=== PATIENT | female | born 1990 | race Two or more races ===

== ENCOUNTER 2018-12-08 11:33 | Inpatient (IN) | payer OTHER, MEDICAID ==
[2018-12-08] MEDS ORDERED: RINGERS SOLUTION,LACTATED 300 ML IV ONE (11:49)
[2018-12-08] MEDS ORDERED: RINGERS SOLUTION,LACTATED 1,000 ML IV PRN (11:49)
[2018-12-08] MEDS ORDERED: OXYTOCIN/NORMAL SALINE 20 UNIT/1,000 ML RTUINJ IV PRN ×2 (11:49→20:01)
[2018-12-08] MEDS ORDERED: PENICILLIN G POTASSIUM 5,000,000 UNIT in DEXTROSE 5%-WATER 100 ML IV ONE (11:50)
[2018-12-08] MEDS ORDERED: MISOPROSTOL 0.2 MG TABLET ONE (12:14)
[2018-12-08] MEDS ORDERED: PENICILLIN G-K 5 MILLION UNIT VIAL ONE ×3 (12:14→21:24)
[2018-12-08] MEDS ORDERED: LIDOCAINE 1% INJ-PF (10 MG/ML) 30 ML SDV ONE (12:14)
[2018-12-08] MEDS ORDERED: OXYTOCIN/NORMAL SALINE 20 UNIT/1,000 ML RTUINJ ONE (12:14)
[2018-12-08 13:01] LABS: ABSOLUTE LYMPHOCYTES (AUTO) 0.8 10^3/uL (0.5-4.7); ABSOLUTE MONOCYTES (AUTO) 0.3 10^3/uL (0.1-1.4); ABSOLUTE NEUT (AUTO) 6.1 10^3/uL (1.7-8.2); BASOPHILS % (AUTO) 0.1 % (0-2); EOSINOPHILS % (AUTO) 0.6 % (0-6); HEMATOCRIT 35.1 % (36.0-47.0); HEMOGLOBIN 12.3 g/dL (12.0-15.5); LYMPHOCYTES % (AUTO) 10.9 % (13-45); MEAN CORPUSCULAR HEMOGLOBIN 33.1 pg (27.0-33.4); MEAN CORPUSCULAR VOLUME 95 fl (80-97); MONOCYTES % (AUTO) 4.2 % (3-13); PLATELET COUNT 205 10^3/uL (150-450); RED CELL DISTRIBUTION WIDTH 13.6 % (11.5-14.0); SEGMENTED NEUTROPHILS % (AUTO) 84.2 % (42-78); TOTAL CELLS COUNTED % (AUTO) 100 %; WHITE BLOOD COUNT 7.2 10^3/uL (4.0-10.5)
--- NOTE | 2018-12-08 13:58 | Admission Physical ---
Datetime Report Generated by CPN: 12/08/2018 13:57 CURRENT ADMISSION Chief Complaint: Sent from OB Office for Evaluation and Treatment - Please Specify Chief Complaint Other: new onset oligohydramnios at term Indication for Induction: Oligohydramnios Admit Impression : Term, Intrauterine Admit Plan: Admit to Unit; Initiate Labor Induction Protocol ALLERGIES Medication Allergies: No Medication Allergies: No Known Allergies (12/08/2018) Latex: No Latex Allergies Food Allergies: none Environmental Allergies: none OBSTETRICAL HISTORY EDC: 12/06/2018 00:00 : 3 Para: 1 Term: 1 : 1 SAB: 0 IAB: 0 Ectopic: 0 Livin Cesareans: 0 VBACs: 0 Multiple Births: 0 Gestational Diabetes: No Rh Sensitization: No Incompetent Cervix: No JULIO: No Infertility: No ART Treatment: No Uterine Anomaly: No IUGR: No Hx Previous C/S: No Macrosomia: No Hx Loss/Stillborn: Yes PIH: No Hx : No Placenta Previa/Abruption: No Depression/PP Depression: Yes PTL/PROM: No Post Hemorrhage: No Current Procedures: Ultrasound; NST Obstetrical History Comments: G1: 2014 20 week demise vaginal G2: 2015 39 weeks - baby has sickle cell trait G3: current SEE RECORDS Alcohol: No Marijuana : No Cocaine: No Other Illicit Drugs: No Cigarettes: Former Smoker. [id number] MEDICAL HISTORY Diabetes: No Blood Transfusion: No Pulmonary Disease (Asthma, TB): No Breast Disease: No Hypertension: No Finish Mender Surgery: No Heart Disease: No Hosp/Surgery: Yes Autoimmune Disorder: No Anesthetic Complications: No Kidney Disease: No Abnormal Pap Smear: Yes Neuro/Epilepsy: No Psychiatric Disorders: No Other Medical Diseases: No Hepatitis/Liver Disease: No Significant Family History: No Varicosities/Phlebitis: No Trauma/Violence : No Thyroid Dysfunction: No Medical History Comments: ASCUS/+HPV, needs colpo INFECTIOUS HISTORY Gonorrhea: No Genital Herpes: No Chlamydia: No Tuberculosis: No Syphilis: No Hepatitis: No HIV/AIDS Exposure: No Rash or Viral Illness: No HPV: Yes 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 PHYSICAL EXAM General: Normal HEENT: Normal Neurologic: Normal Thyroid: Deferred Heart: Normal Lungs: Normal Breast: Deferred Back: Normal Abdomen: Normal Genitourinary Exam: Normal Extremities: Normal DTRs: Deferred Pelvic Type: Adequate Physical Exam Comments: proven pelvis to 6#8 Vital Signs: Reviewed; Within Normal Limits VAGINAL EXAM Dilatation: 4cm in office Contraction Comments: rare MEMBRANES Membranes: Intact FETUS A EGA: 40.2 Monitoring: External US FHR- Baseline: 140 Variability: Moderate 6-25bpm Accelerations: 15X15 Decelerations: None Estimated Weight (gm): 3300 Presentation: Vertex Admit Comment: at 40+2 with previous IUFD at 20w, sent from office for newly found oligohydramnios today, GBS pos. P:penicillin for GBS propylaxis, pitocin IOL, anticipate PLANS FOR LABOR AND DELIVERY Labor and Delivery: None Pain Management: Epidural Feeding Preference: Breast Benefit of Breast Feed Discussed: Yes Circumcision: Yes INFORMED CONSENT Assignment: Barbara Serrano MD Signature: with User ID: [email or web address] : with User ID: [email or web address]
[2018-12-08 14:26] LABS: URINE AMPHETAMINES SCREEN NEGATIVE; URINE BARBITURATES SCREEN NEGATIVE; URINE BENZODIAZEPINES SCREEN NEGATIVE; URINE COCAINE SCREEN NEGATIVE; URINE MARIJUANA (THC) SCREEN NEGATIVE; URINE METHADONE SCREEN NEGATIVE; URINE PHENCYCLIDINE SCREEN NEGATIVE
[2018-12-08] MEDS ORDERED: PSEUDOEPHEDRINE HCL 30 MG TABLET PO ONE (15:45)
[2018-12-08] MEDS: PENICILLIN G POTASSIUM 2,500,000 UNIT in DEXTROSE 5%-WATER 50 ML IV SCH ×2 (16:57→21:35)
[2018-12-09] MEDS ORDERED: EPHEDRINE SULFATE INJ 50 MG/1 ML AMPULE ONE (00:35)
[2018-12-09] MEDS ORDERED: PHENYLEPHRINE HCL INJ/PF 10 MG/1 ML SDV ONE (00:35)
[2018-12-09] MEDS ORDERED: FENTANYL/BUPIVACAINE/NS/PF 300 MCG/150 ML RTUINJ EPI ONE (00:35)
[2018-12-09] MEDS ORDERED: BUPIVACAINE HCL 0.25 % INJ/PF (2.5 MG/1 ML) 30 ML VIAL ONE (00:35)
[2018-12-09] MEDS ORDERED: FENTANYL CITRATE INJ/PF 100 MCG/2 ML AMPUL ONE (00:35)
[2018-12-09] MEDS ORDERED: DIPHENHYDRAMINE HCL 50 MG/ML VIAL IV PRN (00:56)
[2018-12-09] MEDS ORDERED: FENTANYL/BUPIVACAINE/NS/PF 100 ML EPI PRN (00:56)
[2018-12-09] MEDS ORDERED: EPHEDRINE SULFATE INJ 50 MG/1 ML AMPULE IV ONE (00:56)
[2018-12-09] MEDS ORDERED: BENZOIN/ALOE VERA/STORAX/TOLU TINCTURE 60 ML TP PRN (00:56)
[2018-12-09] MEDS ORDERED: BUPIVACAINE HCL 0.25 % INJ/PF (2.5 MG/1 ML) 30 ML VIAL INFIL ONE (00:56)
[2018-12-09] MEDS ORDERED: EPHEDRINE SULFATE INJ 50 MG/1 ML AMPULE IV PRN (00:56)
[2018-12-09] MEDS ORDERED: LIDOCAINE 1.5%/EPINEPHRINE INJ-PF 30 ML SDV ONE (00:59)
[2018-12-09] MEDS ORDERED: FENTANYL/BUPIVACAINE/NS/PF 200 MCG/100 ML RTUINJ EPI PRN (01:01)
[2018-12-09] MEDS ORDERED: DIBUCAINE 1% OINTMENT 28 GM TP PRN (02:53)
[2018-12-09] MEDS ORDERED: ACETAMINOPHEN WITH CODEINE #3 TABLET PO PRN (02:53)
[2018-12-09] MEDS ORDERED: BENZOCAINE/MENTHOL AEROSOL SPRAY 56 ML TOP PRN (02:53)
[2018-12-09] MEDS ORDERED: DIPH/PERTUSS(ACELL)/TETANUS VAC/PF 0.5 ML SYR (>=10YO) IM PRN (02:53)
[2018-12-09] MEDS ORDERED: OXYTOCIN/NORMAL SALINE 20 UNIT/1,000 ML RTUINJ IV PRN (02:53)
[2018-12-09] MEDS ORDERED: ZOLPIDEM TARTRATE 5 MG TABLET PO PRN (02:53)
[2018-12-09] MEDS: IBUPROFEN 800 MG TABLET PO SCH ×3 (06:05→21:06)
[2018-12-09] MEDS: DOCUSATE SODIUM 100 MG CAPSULE PO SCH ×2 (09:22→18:30)
[2018-12-09] MEDS: PRENATAL VITAMIN W DHA CAPSULE PO SCH (09:22)
[2018-12-09] MEDS: SENNOSIDES/DOCUSATE 8.6-50 MG 1 EACH TABLET PO SCH (09:22)
[2018-12-09] MEDS: FERROUS SULFATE 325 MG TABLET PO SCH ×2 (09:23→18:30)
[2018-12-09] MEDS: ACETAMINOPHEN WITH CODEINE #3 TABLET PO PRN ×2 (09:25→18:30)
--- NOTE | 2018-12-09 09:48 | PDOC PROGRESS REPORT ---
Subjective-OB Progress Note for:: 12/09/18 Subjective: PPD 0. Pt doing well, reports light bleeding, reg diet and no problems voiding. Physical Exam (OB) Vital Signs: Temp Pulse Resp BP Pulse Ox 98.4 F 79 17 109/51 L 100 12/09/18 07:40 12/09/18 07:40 12/09/18 07:40 12/09/18 07:40 12/09/18 07:40 Intake & Output 12/08/18 12/09/18 12/10/18 06:59 06:59 06:59 Intake Total 50 Balance 50 Weight 109.2 kg - Lochia Lochia Amount: Scant < 10 ml Lochia Color: Rubra/Red - Abdomen Description: Soft, Round Fundal Height: u/u - u/2 Objective-Diagnostic Laboratory: 12/08/18 12:26 12/08/18 12/08/18 12:26 12:26 WBC 7.2 RBC 3.70 L Hgb 12.3 Hct 35.1 L MCV 95 MCH 33.1 MCHC 35.0 RDW 13.6 Plt Count 205 Seg Neutrophils % 84.2 H Lymphocytes % 10.9 L Monocytes % 4.2 Eosinophils % 0.6 Basophils % 0.1 Absolute Neutrophils 6.1 Absolute Lymphocytes 0.8 Absolute Monocytes 0.3 Absolute Eosinophils 0.0 Absolute Basophils 0.0 Blood Type A POSITIVE Antibody Screen NEGATIVE Assessment and Plan(PN) - Assessment and Plan (1) Vaginal delivery Is this a current diagnosis for this admission?: Yes - Time Spent with Patient Time with patient: Less than 15 minutes Medications reviewed and adjusted accordingly: Yes - Disposition Anticipated Discharge: Home Within: within 48 hours
[2018-12-09 20:44] VITALS: BP 107/65
[2018-12-10] MEDS: IBUPROFEN 800 MG TABLET PO SCH ×2 (06:17→14:35)
[2018-12-10 07:10] LABS: HEMATOCRIT 34.5 % (36.0-47.0); HEMOGLOBIN 12.1 g/dL (12.0-15.5); MEAN CORPUSCULAR HEMOGLOBIN 33.5 pg (27.0-33.4); MEAN CORPUSCULAR HGB CONC 34.9 g/dL (32.0-36.0); MEAN CORPUSCULAR VOLUME 96 fl (80-97); PLATELET COUNT 178 10^3/uL (150-450); RED CELL DISTRIBUTION WIDTH 14.2 % (11.5-14.0); WHITE BLOOD COUNT 7.8 10^3/uL (4.0-10.5)
[2018-12-10] MEDS: SENNOSIDES/DOCUSATE 8.6-50 MG 1 EACH TABLET PO SCH (10:04)
[2018-12-10] MEDS: FERROUS SULFATE 325 MG TABLET PO SCH ×2 (10:04→18:09)
[2018-12-10] MEDS: PRENATAL VITAMIN W DHA CAPSULE PO SCH (10:04)
[2018-12-10] MEDS: DOCUSATE SODIUM 100 MG CAPSULE PO SCH ×2 (10:04→18:09)
--- NOTE | 2018-12-10 10:20 | PDOC PROGRESS REPORT ---
Subjective-OB Progress Note for:: 12/10/18 Physical Exam (OB) Vital Signs: Temp Pulse Resp BP Pulse Ox 97.7 F 97 18 107/65 100 12/09/18 19:26 12/09/18 19:26 12/09/18 19:26 12/09/18 19:26 12/09/18 19:26 Intake & Output 12/09/18 12/10/18 12/11/18 06:59 06:59 06:59 Intake Total 50 940 Balance 50 940 Weight 109.2 kg - PIH/Pre-Eclampsia Clonus: Negative Headache: Absent Epigastric Pain: No Visual Changes: No - Lochia Lochia Amount: Scant < 10 ml Lochia Color: Rubra/Red - Abdomen Description: Soft, Round Hernia Present: No Bowel Sounds: Normoactive Flatus Presence: Present Stool: No Fundal Description: Firm Fundal Height: u/u - u/2 Objective-Diagnostic Laboratory: 12/10/18 06:40 12/10/18 06:40 WBC 7.8 RBC 3.60 L Hgb 12.1 Hct 34.5 L MCV 96 MCH 33.5 H MCHC 34.9 RDW 14.2 H Plt Count 178 Assessment and Plan(PN) - Time Spent with Patient Medications reviewed and adjusted accordingly: Yes - Disposition Anticipated Discharge: Home
--- NOTE | 2018-12-10 19:18 | PDOC DISCHARGE SUMMARY ---
Final Diagnosis Discharge Date: 12/10/18 Discharge Data - Discharge Medication Prescriptions: Ibuprofen [Motrin 800 mg Tablet] 800 mg PO Q8 #90 tablet Home Medications: Prenat 115/Iron Fum/Folic/Dss [ 19 Tablet] 1 each PO DAILY 03/15/16 Ibuprofen [Motrin 800 mg Tablet] 800 mg PO Q8 #90 tablet 12/10/18 Reason(s) for Admission: Onset of Labor - Diagnosis Test Laboratory: Temp Pulse Resp BP Pulse Ox 98.2 F 80 18 107/65 98 12/10/18 18:42 12/10/18 18:42 12/10/18 18:42 12/10/18 18:42 12/10/18 18:42 12/08/18 12/08/18 12/10/18 11:45 12:26 06:40 RBC 3.70 L 3.60 L Hgb 12.3 12.1 Hct 35.1 L 34.5 L Urine Opiates Screen NEGATIVE - Discharge information/Instructions Discharge Activity: Activity As Tolerated, Balance Activity w/Rest, No Lifting Over 10 Pounds, No Lifting/Push/Pulling, Pelvic Rest, No tub bath, Walk Frequently Discharge Diet: As Tolerated Disposition: HOME, SELF-CARE Follow up with: [facility] in: [place]
--- NOTE | 2018-12-14 14:50 | Admission Physical ---
Datetime Report Generated by CPN: 12/14/2018 14:49 CURRENT ADMISSION Chief Complaint: Sent from OB Office for Evaluation and Treatment - Please Specify Chief Complaint Other: new onset oligohydramnios at term Indication for Induction: Oligohydramnios Admit Impression : Term, Intrauterine Admit Plan: Admit to Unit; Initiate Labor Induction Protocol ALLERGIES Medication Allergies: No Medication Allergies: No Known Allergies (12/08/2018) Medication Allergies: No Known Allergies (03/15/2016) Latex: No Latex Allergies Food Allergies: none Environmental Allergies: none OBSTETRICAL HISTORY EDC: 12/06/2018 00:00 : 3 Para: 2 Term: 1 : 1 SAB: 0 IAB: 0 Ectopic: 0 Livin Cesareans: 0 VBACs: 0 Multiple Births: 0 Gestational Diabetes: No Rh Sensitization: No Incompetent Cervix: No JULIO: No Infertility: No ART Treatment: No Uterine Anomaly: No IUGR: No Hx Previous C/S: No Macrosomia: No Hx Loss/Stillborn: Yes PIH: No Hx : No Placenta Previa/Abruption: No Depression/PP Depression: Yes PTL/PROM: No Post Hemorrhage: No Current Procedures: Ultrasound; NST Obstetrical History Comments: G1: 2014 20 week demise vaginal G2: 2015 39 weeks - baby has sickle cell trait G3: current SEE RECORDS Alcohol: No Marijuana : No Cocaine: No Other Illicit Drugs: No Cigarettes: Former Smoker. 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 Surgery: No Heart Disease: No Hosp/Surgery: Yes Autoimmune Disorder: No Anesthetic Complications: No Kidney Disease: No Abnormal Pap Smear: Yes Neuro/Epilepsy: No Psychiatric Disorders: No Other Medical Diseases: No Hepatitis/Liver Disease: No Significant Family History: No Varicosities/Phlebitis: No Trauma/Violence : No Thyroid Dysfunction: No Medical History Comments: ASCUS/+HPV, needs colpo INFECTIOUS HISTORY Gonorrhea: No Genital Herpes: No Chlamydia: No Tuberculosis: No Syphilis: No Hepatitis: No HIV/AIDS Exposure: No Rash or Viral Illness: No HPV: Yes 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 PHYSICAL EXAM General: Normal HEENT: Normal Neurologic: Normal Thyroid: Deferred Heart: Normal Lungs: Normal Breast: Deferred Back: Normal Abdomen: Normal Genitourinary Exam: Normal Extremities: Normal DTRs: Deferred Pelvic Type: Adequate Physical Exam Comments: proven pelvis to 6#8 Vital Signs: Reviewed; Within Normal Limits VAGINAL EXAM Dilatation: 4cm in office Contraction Comments: rare MEMBRANES Membranes: Intact FETUS A EGA: 40.2 Monitoring: External US FHR- Baseline: 140 Variability: Moderate 6-25bpm Accelerations: 15X15 Decelerations: None Estimated Weight (gm): 3300 Presentation: Vertex Admit Comment: at 40+2 with previous IUFD at 20w, sent from office for newly found oligohydramnios today, GBS pos. P:penicillin for GBS propylaxis, pitocin IOL, anticipate PLANS FOR LABOR AND DELIVERY Labor and Delivery: None Pain Management: Epidural Feeding Preference: Breast Benefit of Breast Feed Discussed: Yes Circumcision: Yes INFORMED CONSENT Assignment: Barbara Serrano MD Signature: with User ID: [email or web address] : with User ID: [email or web address]
--- NOTE | 2018-12-14 15:48 | Delivery Summary ---
Del Sum A-C Datetime Report Generated by CPN: 12/14/2018 15:48 DELIVERY PERSONNEL DELIVERY PERSONNEL: [id number] Delivery Doctor:: Barbara Serrano MD Labor and Delivery Nurse:: Ann Quevedo RN Nursery Nurse:: Xiomara Man RN Nursery Nurse:: Sara Bee RN MSN [employer] Healer/FOOD SCIENCE PROFESSOR: Elodia Guillaume, ST MATERNAL INFORMATION Delivery Anesthesia: Epidural Medications After Delivery: Pitocin Drip 20 Units/1000ml NSS Estimated Blood Loss (ml): 300 Maternal Complications: None Provider Comments: of a viable male @ 0232 with an OA with nuchal cord x 1 presentation; APGARS 7, 9; 1st degree midline vag lac LABOR SUMMARY EDC: 12/06/2018 00:00 No. Babies in Womb: 1 Attempted: No Labor Anesthesia: Epidural LABOR INFORMATION Reason for Induction: Oligohydramnios Onset of Labor: 12/08/2018 22:56 Complete Dilatation: 12/09/2018 02:20 Oxytocin: Induction Group B Beta Strep: positive Antibiotics # of Doses: 3 Antibiotics Time of Last Dose: 2134 Name of Antibiotic Given: PCN Steroids Given: None Reason Steroids Not Administered: Not Applicable MEMBRANES Membranes Rupture Method: Spontaneous Membranes Rupture Method: Spontaneous Rupture of Membranes: 12/09/2018 00:01 Length of Rupture (hr): 2.52 Amniotic Fluid Color: Clear Amniotic Fluid Amount: Small Amniotic Fluid Odor: Normal STAGES OF LABOR Stage 1 hr: 3 Stage 1 min: 24 Stage 2 hr: 0 Stage 2 min: 12 Stage 3 hr: 0 Stage 3 min: 6 Total Time in Labor hr: 3 Total Time in Labor min: 42 VAGINAL DELIVERY Episiotomy: None Laceration #1: Vaginal Laceration Extension #1: First Degree Laceration Repair: Yes Laceration Repair Note: 2-0 chromic used to repair Sponge Count Correct: N/A Sharps Count Correct: Yes CSECTION DELIVERY Primary Indication: N/A Secondary Indication: N/A CSection Incidence: N/A Labor: N/A Elective: N/A CSection Incision: N/A BABY A INFORMATION Infant Delivery Date/Time: 12/09/2018 02:32 Method of Delivery: Vaginal Method of Delivery: Vaginal Born in Route : No : N/A Forceps: N/A Vacuum Extraction: N/A Shoulder Dystocia : No PRESENTATION/POSITION BABY A Presentation: Cephalic Cephalic Presentation: Vertex Vertex Position: Right Occipital Anterior Breech Presentation: N/A PLACENTA INFORMATION BABY A Placenta Delivery Time : 12/09/2018 02:38 Placenta Method of Delivery: Spontaneous Placenta Method of Delivery: Spontaneous Placenta Status: Delivered SCORES BABY A Heart Rate 1 min: >100 bpm Resp Effort 1 min: Good Cry Reflex Irritability 1 min: Cough or Sneeze or Pulls Away Muscle Tone 1 min: Some Flexion of Extremities Color 1 min: Blue/Pale Resuscitation Effort 1 min: Tactile Stimulation SCORE 1 MIN: 7 Heart Rate 5 min: >100 bpm Resp Effort 5 min: Good Cry Reflex Irritability 5 min: Cough or Sneeze or Pulls Away Muscle Tone 5 min: Active Motion Color 5 min: Body [place], Extremities Blue Resuscitation Effort 5 min: Tactile Stimulation SCORE 5 MIN: 9 INFORMATION BABY A Gestational Age at Delivery: 40.3 Gestational Status: Full Term- 39- 40.6 Weeks Infant Outcome : Liveborn Infant Condition : Stable Infant Sex: Male Infant Sex: Male IDENTIFICATION BABY A Verification Date/Time: 12/09/2018 02:43 ID Band Number: [id number] Mother's Name Verified: Yes Infant RN Verifying Infant: CJackie Quevedo, RN S. Jaytibelisa, RN WEIGHT/LENGTH BABY A Birthweight (gm): 3139 Infant Weight (lb): 6 Infant Weight (oz): 15 Infant Length (in): 19.50 Length (cm): 49.53 CORD INFORMATION BABY A No. Cord Vessels: 3 Nuchal Cord : Around Neck x1, Loose Cord Blood Taken: N/A ASSESSMENT BABY A Infant Complications: Multiple Variable Decels; Oligohydramnios Physical Findings at Delivery: Within Normal Limits Respirations: Appears Normal Skin to Skin: Yes Skin to Skin: Yes Skin to Skin: Yes Business Planner/ALS Called : No Care By: Puma Bee RN; Samia Man RN Transferred To: Remains with Mother BABY B INFORMATION : N/A SIGNATURES Signature: with User ID: [email or web address] : I was personally available for consultation and serving as supervising physician for the MLP.
== END 2018-12-10 19:00 | disposition home or self-care (01) | DRG 806 ==
LOC: LR 11:33 → 2S 12-09 04:37
PROVIDERS: ADMIT Obstetrics & Gynecology; ATTEND Obstetrics & Gynecology
PROC: 10E0XZZ Delivery of Products of Conception, External Approach (ICD-10-PCS; principal; 2018-12-09)
PROC: 4A1HXCZ Monitoring of Products of Conception, Cardiac Rate, External Approach (ICD-10-PCS; 2018-12-09)
PROC: 0HQ9XZZ Repair Perineum Skin, External Approach (ICD-10-PCS; 2018-12-09)
DX: O99.824 Streptococcus B carrier state complicating childbirth (principal); O41.03X0 Oligohydramnios, third trimester, not applicable or unspecified; Z37.0 Single live birth; O69.81X0 Labor and delivery complicated by cord around neck, without compression, not applicable or unspecified; O76 Abnormality in fetal heart rate and rhythm complicating labor and delivery; O70.0 First degree perineal laceration during delivery; Z87.59 Personal history of other complications of pregnancy, childbirth and the puerperium; Z87.891 Personal history of nicotine dependence; Z3A.40 40 weeks gestation of pregnancy
CPT/HCPCS: 36415; 80307; 85025; 85027; 86592; 86850; 86900; 86901; 88307; 94760; J2370; J2540; J2590; J3010; J3490

== ENCOUNTER 2020-06-03 11:13 | Inpatient (IN) | payer OTHER, MEDICAID ==
[2020-06-03] MEDS ORDERED: RINGERS SOLUTION,LACTATED 1,000 ML IV ONE (11:41)
[2020-06-03] MEDS ORDERED: PENICILLIN G POTASSIUM 5,000,000 UNIT in DEXTROSE 5%-WATER 100 ML IV PRN (11:41)
[2020-06-03] MEDS ORDERED: OXYTOCIN 10 UNIT/ML VIAL ONE ×2 (11:47→12:24)
[2020-06-03] MEDS ORDERED: OXYTOCIN/0.9 % SODIUM CHLORIDE 0 UNIT/0 ML RTUINJ ONE (11:47)
[2020-06-03] MEDS ORDERED: LIDOCAINE 1% INJ-PF (10 MG/ML) 30 ML SDV ONE ×2 (11:47→12:25)
[2020-06-03] MEDS ORDERED: MISOPROSTOL 0.2 MG TABLET ONE ×2 (11:47→12:25)
[2020-06-03] MEDS ORDERED: OXYTOCIN/0.9 % SODIUM CHLORIDE 30 UNIT/500 ML RTUINJ IV PRN ×2 (11:52→15:41)
[2020-06-03] MEDS ORDERED: OXYTOCIN/0.9 % SODIUM CHLORIDE 30 UNIT/500 ML RTUINJ ONE ×2 (12:25→12:41)
[2020-06-03 12:32] LABS: HEMATOCRIT 36.2 % (36.0-47.0); HEMOGLOBIN 12.7 g/dL (12.0-15.5); MEAN CORPUSCULAR HEMOGLOBIN 33.3 pg (27.0-33.4); MEAN CORPUSCULAR HGB CONC 35.1 g/dL (32.0-36.0); MEAN CORPUSCULAR VOLUME 95 fl (80-97); PLATELET COUNT 213 10^3/uL (150-450); RED BLOOD COUNT 3.82 10^6/uL (3.72-5.28); RED CELL DISTRIBUTION WIDTH 13.6 % (11.5-14.0); WHITE BLOOD COUNT 6.5 10^3/uL (4.0-10.5)
[2020-06-03] MEDS ORDERED: PENICILLIN G-K 5 MILLION UNIT VIAL ONE (12:42)
[2020-06-03] MEDS: RINGERS SOLUTION,LACTATED 1,000 ML IV PRN ×2 (13:00→15:18)
[2020-06-03 13:47] LABS: URINE AMPHETAMINES SCREEN NEGATIVE; URINE BARBITURATES SCREEN NEGATIVE; URINE BENZODIAZEPINES SCREEN NEGATIVE; URINE COCAINE SCREEN NEGATIVE; URINE MARIJUANA (THC) SCREEN NEGATIVE; URINE METHADONE SCREEN NEGATIVE; URINE PHENCYCLIDINE SCREEN NEGATIVE
[2020-06-03] MEDS ORDERED: ROPIVACAINE HCL 0.2% INJ/PF (2 MG/ML) 20 ML SDV ONE (14:37)
[2020-06-03] MEDS ORDERED: EPHEDRINE SULFATE INJ 50 MG/1 ML AMPULE ONE (14:37)
[2020-06-03] MEDS ORDERED: FENTANYL/BUPIVACAINE/NS/PF 300 MCG/150 ML RTUINJ EPI ONE (14:37)
[2020-06-03] MEDS ORDERED: ACETAMINOPHEN WITH CODEINE #3 TABLET PO PRN (15:41)
[2020-06-03] MEDS ORDERED: MAGNESIUM HYDROXIDE SUSP 30 ML UDCUP PO PRN (15:41)
[2020-06-03] MEDS ORDERED: BENZOCAINE/MENTHOL AEROSOL SPRAY 56 ML TOP PRN (15:41)
[2020-06-03] MEDS ORDERED: NA PHOS,M-B/NA PHOS,DI-BA (ADULT) 133 ML ENEMA PR PRN (15:41)
[2020-06-03] MEDS ORDERED: ZOLPIDEM TARTRATE 5 MG TABLET PO PRN (15:41)
[2020-06-03] MEDS ORDERED: DIPH/PERTUSS(ACELL)/TETANUS VAC/PF 0.5 ML SYR (>=10YO) IM PRN (15:41)
[2020-06-03] MEDS ORDERED: PROMETHAZINE HCL INJ 25 MG/1 ML VIAL IV PRN (15:41)
[2020-06-03] MEDS ORDERED: PSEUDOEPHEDRINE HCL 30 MG TABLET PO PRN (15:41)
[2020-06-03] MEDS ORDERED: MEASLES,MUMPS&RUBELLA VACC/PF 0.5 ML VIAL SUBCUT PRN (15:41)
[2020-06-03] MEDS ORDERED: PROMETHAZINE HCL 25 MG TABLET PO PRN (15:41)
[2020-06-03] MEDS ORDERED: ACETAMINOPHEN 650 MG SUPP.RECT PR PRN (15:41)
[2020-06-03] MEDS ORDERED: DIBUCAINE 1% OINTMENT 28 GM TP PRN (15:41)
[2020-06-03] MEDS ORDERED: GLYCERIN/WITCH HAZEL LEAF 1 EACH MED..WIPE TP PRN (15:41)
[2020-06-03] MEDS ORDERED: PROMETHAZINE HCL 25 MG SUPP.RECT PR PRN (15:41)
[2020-06-03] MEDS ORDERED: DIPHENHYDRAMINE HCL 25 MG CAPSULE PO PRN (15:41)
--- NOTE | 2020-06-03 16:40 | Warning Signs in Babies ---
VOD Warning Signs Datetime Report Generated by N: 06/03/2020 16:40 VOD#608 -Warning Signs in Babies: Viewed with Parent(s)/Family (06/03/2020 16:38:Ladan San RN)
[2020-06-03] MEDS: PENICILLIN G POTASSIUM 2,500,000 UNIT in DEXTROSE 5%-WATER 50 ML IV SCH ×2 (16:55→19:31)
--- NOTE | 2020-06-03 18:45 | Delivery Summary ---
Del Sum A-C Datetime Report Generated by CPN: 06/03/2020 18:45 DELIVERY PERSONNEL DELIVERY PERSONNEL: [id number] Delivery Doctor:: Deric Martinez MD Labor and Delivery Nurse:: CRUZ Almazanlinen aide Nurse:: Dom Liu RN Nursery Nurse:: Tari Gann RN Paraprofessional Education Assistant/CHILD CAREGIVER PRIVATE HOME: Deepa Ross, ST MATERNAL INFORMATION Delivery Anesthesia: None Medications After Delivery: Pitocin 30 Units in 500ml NS/D5W Delivery QBL: 50 Maternal Complications: None LABOR SUMMARY EDC: 06/07/2020 00:00 No. Babies in Womb: 1 Attempted: No Labor Anesthesia: Epidural LABOR INFORMATION Reason for Induction: Other Reason for Induction- Other: History of precipitous labor and GBS positive. Onset of Labor: 06/03/2020 14:35 Complete Dilatation: 06/03/2020 15:25 Oxytocin: N/A Group B Beta Strep: positive Antibiotics # of Doses: 1 Antibiotics Time of Last Dose: 9 Name of Antibiotic Given: Penicillin Steroids Given: None Reason Steroids Not Administered: Not Applicable MEMBRANES Membranes Rupture Method: Spontaneous Rupture of Membranes: 06/03/2020 14:35 (Annotations: Data stored by [facility] on behalf of user) Length of Rupture (hr): 1.00 Amniotic Fluid Color: Clear Amniotic Fluid Amount: Small Amniotic Fluid Odor: Normal STAGES OF LABOR Stage 1 hr: 0 Stage 1 min: 50 Stage 2 hr: 0 Stage 2 min: 10 Stage 3 hr: 0 Stage 3 min: 3 Total Time in Labor hr: 1 Total Time in Labor min: 3 VAGINAL DELIVERY Episiotomy: None Laceration #1: None Laceration Extension #1: N/A Laceration Repair: Not Applicable Sponge Count Correct: Yes Sharps Count Correct: Yes CSECTION DELIVERY Primary Indication: N/A Secondary Indication: N/A CSection Incidence: N/A Labor: N/A Elective: N/A CSection Incision: N/A BABY A INFORMATION Delivery Date/Time: 06/03/2020 15:35 Method of Delivery: Vaginal Nurse Controlled Delivery: No Born in Route : No : N/A Forceps: N/A Vacuum Extraction: N/A Shoulder Dystocia : No PRESENTATION/POSITION BABY A Presentation: Cephalic Cephalic Presentation: Vertex Vertex Position: Left Occipital Anterior Breech Presentation: N/A PLACENTA INFORMATION BABY A Placenta Delivery Time : 06/03/2020 15:38 Placenta Method of Delivery: Spontaneous Placenta Status: Delivered SCORES BABY A Heart Rate 1 min: >100 bpm Resp Effort 1 min: Good Cry Reflex Irritability 1 min: Cough or Sneeze or Pulls Away Muscle Tone 1 min: Active Motion Color 1 min: Blue/Pale Resuscitation Effort 1 min: Tactile Stimulation SCORE 1 MIN: 8 Heart Rate 5 min: >100 bpm Resp Effort 5 min: Good Cry Reflex Irritability 5 min: Cough or Sneeze or Pulls Away Muscle Tone 5 min: Active Motion Color 5 min: Body Woody, Extremities Blue Resuscitation Effort 5 min: Tactile Stimulation SCORE 5 MIN: 9 INFORMATION BABY A Gestational Age at Delivery: 39.3 Gestational Status: Full Term- 39- 40.6 Weeks Outcome : Liveborn Condition : Stable Sex: Female IDENTIFICATION BABY A Verification Date/Time: 06/03/2020 16:22 ID Band Number: [id number] Infant RN Verifying Infant: Andreas San, CRUZ Additional Verifying Personnel: Valerie Liu RN WEIGHT/LENGTH BABY A Birthweight (gm): 3282 Weight (lb): 7 Weight (oz): 4 Length (in): 19.50 Infant Length (cm): 49.53 CORD INFORMATION BABY A No. Cord Vessels: 3 Nuchal Cord : N/A Cord Blood Taken: Yes-For Storage (Mom's Blood type +) Infant Suction: None ASSESSMENT BABY A Complications: None Physical Findings at Delivery: Within Normal Limits Skin to Skin: Yes Skin to Skin Time (min): 60 Transferred To: Remains with Mother BABY B INFORMATION : N/A SIGNATURES Signature: with User ID: [email or web address]
--- NOTE | 2020-06-03 18:45 | Birth Certificate Data ---
Cert Data Datetime Report Generated by CPN: 06/03/2020 18:45 CERTIFICATE DATA 48a. Number of Prev Live Births: 2 (06/03/2020 10:46:Dom Liu RN) RISK FACTORS IN THIS 49a. Diabetes: No (06/03/2020 10:46:Ladan San RN) 49b. Hypertension: No (06/03/2020 10:46:Ladan San RN) Stillborns: No (06/03/2020 10:46:Ladan San RN) IUGR: No (06/03/2020 10:46:Ladan San RN) 49e. Infertility Treatment: No (06/03/2020 10:46:Ladan San RN) Mother's Height 50b. Height Inches: 63 (06/03/2020 18:10:QS system process) Mother's Weight 51a. Pre- Weight: 244 (06/03/2020 10:46:Dom Liu RN) 51b. Weight at Time of Delivery: 253 (06/03/2020 18:10:QS system process) Infections Present/Treated 53a. Gonorrhea: No (06/03/2020 10:46:Ladan San RN) Results this Hospital Visit : Negative (06/03/2020 10:46:Dom Liu RN) 53b. Syphilis: No (06/03/2020 10:46:Ladan San RN) 53c. Chlamydia: No (06/03/2020 10:46:Ladan San RN) Results this Hospital Visit: Negative (06/03/2020 10:46:Ladan San RN) 53d. Hepatitis B: No (06/03/2020 10:46:Ladan San RN) Results this Hospital Visit: Negative (06/03/2020 10:46:Ladan San RN) 53e. Hepatitis C: Negative (06/03/2020 10:46:Dom Liu RN) 53i. Date Tested: 11/26/2019 00:00 (06/03/2020 10:46:Ladan San RN) Obstetric Procedures 54a, b, c. Obstetric Procedures: Ultrasound (06/03/2020 10:46:Ladan San RN) Cigarette Smoking 55a. 3 Months Before Preg - Ci (06/03/2020 10:46:Ladan San RN) 55a. Packs: 0 (06/03/2020 10:46:Ladan San RN) 55b. 1st Trimester of Preg- Ci (06/03/2020 10:46:Ladan San RN) 55b. Packs: 0 (06/03/2020 10:46:Ladan San RN) 55c. 2nd Trimester of Preg- Ci (06/03/2020 10:46:Ladan San RN) 55c. Packs: 0 (06/03/2020 10:46:Ladan San RN) 55d. 3rd Trimester of Preg- Ci (06/03/2020 10:46:Ladan San RN) 55d. Packs: 0 (06/03/2020 10:46:Ladan San RN) Onset of Labor 56a. PROM >12 Hrs: 1.00 (06/03/2020 10:46:QS system process) 56b. Precipitous Labor <3 Hrs: 1 (06/03/2020 10:46:QS system process) 56c. Prolonged Labor > 20 Hrs: 1 (06/03/2020 10:46:QS system process) 57a. Induction of Labor: N/A (06/03/2020 10:46:Dom Liu RN) 57c. Non-Vertex Presentation A: Vertex (06/03/2020 10:46:Ladan San RN) 57d. Steroids - Lung Mat: None (06/03/2020 10:46:Ladan San RN) 57d. Steroids - Lung Mat: Not Applicable (06/03/2020 10:46:Ladan San RN) 57e. Antibiotics During Labor: 1309 (06/03/2020 10:46:Ladan San RN) 57g. Moderate/Heavy Meconium: Clear (06/03/2020 10:46:Ladan San RN) 57h. Intolerance of Labor: N/A (06/03/2020 10:46:Ladan San RN) : N/A (06/03/2020 10:46:Ladan San RN) 57i. Epidural/Spinal Anesthesia: Epidural (06/03/2020 10:46:Ladan San RN) Method of Delivery 58a. Forceps - Unsuccessful A: N/A (06/03/2020 10:46:Ladan San RN) 58b. Vacuum - Unsuccessful A: N/A (06/03/2020 10:46:Ladan San RN) 58c. Presentation at 58c. Presentation at - A : Vertex (06/03/2020 10:46:Ladan San RN) 58c. Presentation at - A : N/A (06/03/2020 10:46:Ladan San RN) 58c. Presentation at - A : Cephalic (06/03/2020 10:46:Ladan San RN) Final Route and Method of Del 58d. Baby A Route/Delivery: Vaginal (06/03/2020 15:35:Ladan San RN) 58e. Trial of Labor Attempted: No (06/03/2020 10:46:Ladan San RN) 58e. Trial of Labor Attempted A: N/A (06/03/2020 10:46:Ladan San RN) 58e. Trial of Labor Attempted B: N/A (06/03/2020 10:46:Ladan Jaswinder, RN) Maternal Morbidity 59b. 3rd or 4th Degree Lacs: None (06/03/2020 10:46:Deric Martinez MD ([facility])) 59b. 3rd or 4th Degree Lacs: N/A (06/03/2020 10:46:Ladan Vinsonn, RN) Birthweight Baby A: 3282 (06/03/2020 10:46:Tari Gann RN) 60a. Pounds : 7 (06/03/2020 10:46:QS system process) 60b. Ounces: 4 (06/03/2020 10:46:QS system process) 61. GA at Delivery Baby A: 39.3 (06/03/2020 10:46:Ladan San RN) : Full Term- 39- 40.6 Weeks (06/03/2020 10:46:QS system process) 62a. 5 Minute Baby A: 9 (06/03/2020 10:46:QS system process)
[2020-06-03] MEDS: FERROUS SULFATE 325 MG TABLET PO SCH (19:04)
[2020-06-03] MEDS: DOCUSATE SODIUM 100 MG CAPSULE PO SCH (19:06)
[2020-06-03] MEDS: FAMOTIDINE 20 MG TABLET PO SCH (21:25)
[2020-06-03] MEDS: IBUPROFEN 800 MG TABLET PO SCH (21:25)
[2020-06-04] MEDS: PENICILLIN G POTASSIUM 2,500,000 UNIT in DEXTROSE 5%-WATER 50 ML IV SCH ×2 (05:32→05:33)
[2020-06-04] MEDS: IBUPROFEN 800 MG TABLET PO SCH ×3 (05:39→21:10)
[2020-06-04 06:37] LABS: HEMATOCRIT 37.9 % (36.0-47.0); HEMOGLOBIN 13.1 g/dL (12.0-15.5); MEAN CORPUSCULAR HEMOGLOBIN 32.9 pg (27.0-33.4); MEAN CORPUSCULAR HGB CONC 34.5 g/dL (32.0-36.0); MEAN CORPUSCULAR VOLUME 95 fl (80-97); PLATELET COUNT 199 10^3/uL (150-450); RED BLOOD COUNT 3.97 10^6/uL (3.72-5.28); RED CELL DISTRIBUTION WIDTH 13.9 % (11.5-14.0); WHITE BLOOD COUNT 8.1 10^3/uL (4.0-10.5)
[2020-06-04] MEDS: PRENATAL VITAMIN W DHA CAPSULE PO SCH (09:40)
[2020-06-04] MEDS: FAMOTIDINE 20 MG TABLET PO SCH ×2 (09:40→21:10)
[2020-06-04] MEDS: SENNOSIDES/DOCUSATE 8.6-50 MG 1 EACH TABLET PO SCH (09:41)
[2020-06-04] MEDS: DOCUSATE SODIUM 100 MG CAPSULE PO SCH ×2 (09:41→18:35)
[2020-06-04] MEDS: FERROUS SULFATE 325 MG TABLET PO SCH ×2 (09:41→18:35)
--- NOTE | 2020-06-04 10:12 | PDOC PROGRESS REPORT ---
Subjective-OB Progress Note for:: 06/04/20 Subjective: Pt doing well, no concerns. She reports light bleeding, reg diet and voiding w/o difficulty. Physical Exam (OB) Vital Signs: Temp Pulse Resp BP Pulse Ox 97.8 F 67 18 102/56 L 98 06/04/20 07:27 06/04/20 07:27 06/04/20 07:27 06/04/20 07:27 06/04/20 07:27 Intake & Output 06/03/20 06/04/20 06/05/20 06:59 06:59 06:59 Intake Total 888 Balance 888 Weight 114.6 kg - Maternal Morbidity 59. Maternal Morbidity (serious complications experinced by the mother associated with labor and delivery: None of the above - Lochia Lochia Amount: Small 10-25 ml Lochia Color: Rubra/Red - Abdomen Description: Soft Hernia Present: No Fundal Description: Firm, Midline Fundal Height: u/u - u/2 Objective-Diagnostic Laboratory: 06/04/20 06:23 06/03/20 06/03/20 06/04/20 12:06 12:06 06:23 WBC 6.5 8.1 RBC 3.82 3.97 Hgb 12.7 13.1 Hct 36.2 37.9 MCV 95 95 MCH 33.3 32.9 MCHC 35.1 34.5 RDW 13.6 13.9 Plt Count 213 199 Blood Type A POSITIVE Antibody Screen NEGATIVE Assessment and Plan(PN) - Assessment and Plan (1) History demise Is this a current diagnosis for this admission?: Yes (2) Positive GBS test Is this a current diagnosis for this admission?: Yes (3) Vaginal delivery Is this a current diagnosis for this admission?: Yes - Time Spent with Patient Time with patient: Less than 15 minutes Medications reviewed and adjusted accordingly: Yes - Disposition Anticipated Discharge Disposition: Home, Self Care Anticipated Discharge Timeframe: within 24 hours
[2020-06-05] MEDS: IBUPROFEN 800 MG TABLET PO SCH (05:13)
[2020-06-05 08:17] VITALS: BP 103/51
[2020-06-05] MEDS: SENNOSIDES/DOCUSATE 8.6-50 MG 1 EACH TABLET PO SCH (09:50)
[2020-06-05] MEDS: PRENATAL VITAMIN W DHA CAPSULE PO SCH (09:50)
[2020-06-05] MEDS: FERROUS SULFATE 325 MG TABLET PO SCH (09:50)
[2020-06-05] MEDS: DOCUSATE SODIUM 100 MG CAPSULE PO SCH (09:50)
[2020-06-05] MEDS: FAMOTIDINE 20 MG TABLET PO SCH (09:50)
--- NOTE | 2020-06-08 10:51 | Delivery Summary ---
Del Sum A-C Datetime Report Generated by CPN: 06/08/2020 10:50 DELIVERY PERSONNEL DELIVERY PERSONNEL: [id number] Delivery Doctor:: Deric Martinez MD Labor and Delivery Nurse:: CRUZ Almazanjinriksha driver Nurse:: Dom Liu RN Nursery Nurse:: Tari Gann RN Tool Grinding Machine Operator/PLASTIC MIXER: Deepa Ross, ST MATERNAL INFORMATION Delivery Anesthesia: None Medications After Delivery: Pitocin 30 Units in 500ml NS/D5W Delivery QBL: 50 Maternal Complications: None LABOR SUMMARY EDC: 06/07/2020 00:00 No. Babies in Womb: 1 Attempted: No Labor Anesthesia: Epidural LABOR INFORMATION Reason for Induction: Other Reason for Induction- Other: History of precipitous labor and GBS positive. Onset of Labor: 06/03/2020 14:35 Complete Dilatation: 06/03/2020 15:25 Oxytocin: N/A Group B Beta Strep: positive Antibiotics # of Doses: 1 Antibiotics Time of Last Dose: 9 Name of Antibiotic Given: Penicillin Steroids Given: None Reason Steroids Not Administered: Not Applicable MEMBRANES Membranes Rupture Method: Spontaneous Rupture of Membranes: 06/03/2020 14:35 (Annotations: Data stored by [facility] on behalf of user) Length of Rupture (hr): 1.00 Amniotic Fluid Color: Clear Amniotic Fluid Amount: Small Amniotic Fluid Odor: Normal Amniotic Fluid Odor: None STAGES OF LABOR Stage 1 hr: 0 Stage 1 min: 50 Stage 2 hr: 0 Stage 2 min: 10 Stage 3 hr: 0 Stage 3 min: 3 Total Time in Labor hr: 1 Total Time in Labor min: 3 VAGINAL DELIVERY Episiotomy: None Laceration #1: None Laceration Extension #1: N/A Laceration Repair: Not Applicable Sponge Count Correct: Yes Sharps Count Correct: Yes CSECTION DELIVERY Primary Indication: N/A Secondary Indication: N/A CSection Incidence: N/A Labor: N/A Elective: N/A CSection Incision: N/A BABY A INFORMATION Infant Delivery Date/Time: 06/03/2020 15:35 Method of Delivery: Vaginal Nurse Controlled Delivery: No Born in Route : No : N/A Forceps: N/A Vacuum Extraction: N/A Shoulder Dystocia : No PRESENTATION/POSITION BABY A Presentation: Cephalic Cephalic Presentation: Vertex Vertex Position: Left Occipital Anterior Breech Presentation: N/A PLACENTA INFORMATION BABY A Placenta Delivery Time : 06/03/2020 15:38 Placenta Method of Delivery: Spontaneous Placenta Status: Delivered SCORES BABY A Heart Rate 1 min: >100 bpm Resp Effort 1 min: Good Cry Reflex Irritability 1 min: Cough or Sneeze or Pulls Away Muscle Tone 1 min: Active Motion Color 1 min: Blue/Pale Resuscitation Effort 1 min: Tactile Stimulation SCORE 1 MIN: 8 Heart Rate 5 min: >100 bpm Resp Effort 5 min: Good Cry Reflex Irritability 5 min: Cough or Sneeze or Pulls Away Muscle Tone 5 min: Active Motion Color 5 min: Body [place], Extremities Blue Resuscitation Effort 5 min: Tactile Stimulation SCORE 5 MIN: 9 INFANT INFORMATION BABY A Gestational Age at Delivery: 39.3 Gestational Status: Full Term- 39- 40.6 Weeks Outcome : Liveborn Condition : Stable Sex: Female IDENTIFICATION BABY A Verification Date/Time: 06/03/2020 16:22 ID Band Number: [id number] Infant RN Verifying Infant: Andreas San, CRUZ Additional Verifying Personnel: Valerie Liu, RN WEIGHT/LENGTH BABY A Infant Birthweight (gm): 3282 Infant Weight (lb): 7 Infant Weight (oz): 4 Infant Length (in): 19.50 Infant Length (cm): 49.53 CORD INFORMATION BABY A No. Cord Vessels: 3 Nuchal Cord : N/A Cord Blood Taken: Yes-For Storage (Mom's Blood type +) Infant Suction: None ASSESSMENT BABY A Infant Complications: None Physical Findings at Delivery: Within Normal Limits Skin to Skin: Yes Skin to Skin: Yes Skin to Skin Time (min): 60 Transferred To: Remains with Mother BABY B INFORMATION : N/A SIGNATURES Signature: with User ID: [email or web address]
--- NOTE | 2020-06-08 10:53 | Admission Physical ---
Datetime Report Generated by CPN: 06/08/2020 10:53 CURRENT ADMISSION Chief Complaint: Other Indication for Induction: Other Admit Impression : Term, Intrauterine Admit Plan: Admit to Unit; Initiate Labor Induction Protocol ALLERGIES Medication Allergies: No Medication Allergies: No Known Allergies (06/03/2020) Medication Allergies: No Known Allergies (12/08/2018) Latex: No Latex Allergies Food Allergies: None Environmental Allergies: None OBSTETRICAL HISTORY EDC: 06/07/2020 00:00 : 4 Para: 2 Term: 2 Multiple Births: 0 Gestational Diabetes: No Rh Sensitization: No Incompetent Cervix: No JULIO: No Infertility: No ART Treatment: No Uterine Anomaly: No IUGR: No Hx Previous C/S: No Macrosomia: No Hx Loss/Stillborn: No PIH: No Hx : No Placenta Previa/Abruption: No Depression/PP Depression: No PTL/PROM: No Post Hemorrhage: No Current Procedures: Ultrasound Obstetrical History Comments: G1- SAB G2- 2014 Boy G3- 2015 Boy G4- Current SEE RECORDS Alcohol: No Marijuana : No Cocaine: No Other Illicit Drugs: No Cigarettes: Former Smoker. 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 Surgery: No Heart Disease: No Hosp/Surgery: Yes Autoimmune Disorder: No Anesthetic Complications: No Kidney Disease: No Abnormal Pap Smear: Yes Neuro/Epilepsy: No Psychiatric Disorders: No Other Medical Diseases: No Hepatitis/Liver Disease: No Significant Family History: No Varicosities/Phlebitis: No Trauma/Violence : No Thyroid Dysfunction: No Medical History Comments: Hopsitalized for child INFECTIOUS HISTORY Gonorrhea: No Genital Herpes: No Chlamydia: No Tuberculosis: No Syphilis: No Hepatitis: No HIV/AIDS Exposure: No Rash or Viral Illness: No HPV: Yes PHYSICAL EXAM General: Normal HEENT: Normal Neurologic: Normal Thyroid: Normal Heart: Normal Lungs: Normal Breast: Deferred Back: Normal Abdomen: Normal Genitourinary Exam: Normal Extremities: Normal DTRs: Normal Pelvic Type: Adequate FETUS A EGA: 39.4 PLANS FOR LABOR AND DELIVERY Labor and Delivery: None Pain Management: Epidural Feeding Preference: Breast Benefit of Breast Feed Discussed: Yes Circumcision: N/A INFORMED CONSENT Signature: with User ID: [email or web address]
== END 2020-06-05 14:30 | disposition home or self-care (01) | DRG 807 ==
LOC: LR 11:13 → 2S 18:10
PROVIDERS: ADMIT Obstetrics & Gynecology Gynecology; ATTEND Obstetrics & Gynecology Gynecology
PROC: 10E0XZZ Delivery of Products of Conception, External Approach (ICD-10-PCS; principal; 2020-06-03)
DX: O99.824 Streptococcus B carrier state complicating childbirth (principal); Z37.0 Single live birth; Z11.59 Encounter for screening for other viral diseases; Z87.891 Personal history of nicotine dependence; Z3A.39 39 weeks gestation of pregnancy
CPT/HCPCS: 1967; 36415; 80307; 85027; 86592; 86850; 86900; 86901; 94760; J2540; J2590; J2795; J3010; J3490; J7060